=== PATIENT | female | born 1975 | race Caucasian/White ===

== ENCOUNTER 2022-06-05 13:46 | Emergency (ER) | payer OTHER ==
[~2022-06-05] VITALS: Ht 172.7 cm; Wt 96.2 kg
== END 2022-06-05 14:28 | disposition home or self-care (01) ==
LOC: ED 13:46
DX: S13.9XXA Sprain of joints and ligaments of unspecified parts of neck, initial encounter (principal); V43.52XA Car driver injured in collision with other type car in traffic accident, initial encounter
CPT/HCPCS: 99283

== ENCOUNTER 2025-01-04 11:21 | Emergency (ER) | payer OTHER | END 2025-01-04 13:18 | disposition home or self-care (01) | LOC: ED 11:21 | DX: I10 Essential (primary) hypertension (principal); Z79.82 Long term (current) use of aspirin; Z79.899 Other long term (current) drug therapy ==